=== PATIENT | female | born 1985 | race Two or more races ===

== ENCOUNTER 2020-12-05 01:55 | Emergency (ER) | payer OTHER ==
[~2020-12-05] VITALS: Ht 160 cm; Wt 83.9 kg
[2020-12-05 01:55] VITALS: BP 120/88
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
[2020-12-05] MEDS ORDERED: LORAZEPAM 1 MG TABLET ONE (02:18)
[2020-12-05] MEDS ORDERED: LORAZEPAM 1 MG TABLET PO ONE (02:30)
--- NOTE | 2020-12-05 05:02 | NUR ---
Patient called loraine.
--- NOTE | 2020-12-05 05:10 | NUR ---
Patient discharged to home in stable condition. Written and verbal after care instructions given. Patient verbalizes understanding of instruction.
== END 2020-12-05 05:11 | disposition home or self-care (01) ==
LOC: ER 01:59
DX: F41.9 Anxiety disorder, unspecified (principal); R42 Dizziness and giddiness; E11.9 Type 2 diabetes mellitus without complications
CPT/HCPCS: 82962-TC; 84703-TC